=== PATIENT | female | born 1960 | race Caucasian/White ===

== ENCOUNTER → 2017-04-17 | Day surgery (SDC) | payer BC ==
[~2017-04-17] MED LIST: IOHEXOL 180 MG/ML 20 ML VIAL (for RAD DIAG) ONE; KETOROLAC TROMETHAMINE 30 MG/ML (IVP) VIAL IV PUSH ONE; LACTATED RINGER'S 1000 ML INJ 1,000 ML ONE; LIDOCAINE HCL 1% 50 ML VIAL ONE; MIDAZOLAM HCL 2 MG/2 ML VIAL ONE; PROPOFOL 200 MG/20 ML AMP IV ONE; TRIAMCINOLONE ACETONIDE 40 MG/ML VIAL ONE
--- NOTE | 2017-04-17 16:38 | TN ---
cc: JENNIFER INGRAM DATE OF SURGERY: 04/17/2017. PREOPERATIVE DIAGNOSIS: 1. Osteoarthritis of the right hip. 2. Labral tear of right hip. 3. Arthrofibrosis left right hip. POSTOPERATIVE DIAGNOSIS: 1. Osteoarthritis of the right hip. 2. Labral tear of right hip. 3. Arthrofibrosis left right hip. OPERATIVE PROCEDURE PERFORMED: 1. Arthrogram of the right hip. 2. Injection right hip with 40 mg Depo-Medrol. 3. Manipulation right hip under anesthesia. 4. Use of fluoroscopy for percutaneous needle guidance 5. Intraoperative x-rays right hip, two-views. SURGEON: Jennifer Ingram MD. ANESTHESIA: TIVA. ESTIMATED BLOOD LOSS: None. INDICATIONS FOR THE PROCEDURE: This patient is a 56-year-old female with progressive loss of range of motion and pain in the region of her right hip. [facility] and is having progressive discomfort. Physical examination shows loss of motion. She now presents for surgical treatment. DESCRIPTION OF THE PROCEDURE IN DETAIL: The patient was brought to the operating room and given limited sedation. The right hip was evaluated under anesthesia. Range of motion of the right hip was: flexion 80, extension 0, internal rotation 20, external rotation 25, abduction 20, adduction 10. After manipulation, range of motion was: flexion 110, extension zero, internal rotation 25, external rotation 35, abduction 40, adduction 20. The right hip was scrubbed with alcohol followed by Hibiclens followed by Chloraprep and draped sterilely. A 22-gauge spinal needle was advanced under fluoroscopy to the anterior aspect of the right hip joint. This was placed intra-articular. An arthrogram was performed. This showed evidence of irregularities along the anterior edge of the acetabulum. There was a slight fluid collection that was extraarticular and anterior. There was mild pitting and erosive changes. The hip was then injected with 40 milligrams of Depo-Medrol and 3 cc of 1% lidocaine plain. The hip was run through a second range of motion. Intraoperative x-rays were obtained. There was no evidence of a fracture. The arthrogram changes were as previously noted. The patient was awakened and taken to the recovery room in satisfactory condition. Jennifer MD [facility] /4:20 PM /4:32 PM
== END | disposition home or self-care (01) ==
LOC: ESDC 13:51
PROVIDERS: ATTEND Orthopaedic Surgery Orthopaedic Surgery of the Spine
DX: M16.11 Unilateral primary osteoarthritis, right hip (principal); M24.651 Ankylosis, right hip; S73.101A Unspecified sprain of right hip, initial encounter
CPT/HCPCS: 01200; 27275; 73502; 76000; J1885; J2250; J3010; J3301; J7120; Q9965

== ENCOUNTER → 2017-09-11 | Day surgery (SDC) | payer BC ==
[~2017-09-11] MED LIST changes: -IOHEXOL 180 MG/ML 20 ML VIAL (for RAD DIAG) ONE; +IOHEXOL 180 MG/ML 20 ML VIAL (for RAD DIAG) OTHER ONE; -LACTATED RINGER'S 1000 ML INJ 1,000 ML ONE; +LIDOCAINE HCL 1% 20 ML VIAL INFIL ONE; -LIDOCAINE HCL 1% 50 ML VIAL ONE; +PROPOFOL 100 MG/10 ML INJ IV ONE; -PROPOFOL 200 MG/20 ML AMP IV ONE
--- NOTE | 2017-09-11 16:34 | TN ---
cc: JENNIFER INGRAM DATE OF SURGERY: 09/11/2017. PREOPERATIVE DIAGNOSIS: 1. Osteoarthritis of the right hip. 2. Arthrofibrosis right hip. POSTOPERATIVE DIAGNOSIS: 1. Osteoarthritis of the right hip. 2. Arthrofibrosis right hip. OPERATIVE PROCEDURE PERFORMED: 1. Manipulation, right hip under anesthesia. 2. Injection of Kenalog, right hip, 40 milligrams. 3. Use of fluoroscopy for percutaneous guidance. 4. Intraoperative x-ray right hip. 5. Arthrogram of the right hip. SURGEON: Jennifer Ingram MD. ANESTHESIA: TIVA. ESTIMATED BLOOD LOSS: Minimal. INDICATIONS FOR THE PROCEDURE: This is a 57-year female with progressive pain in the region of her right hip. Investigative studies show evidence of moderate arthritis of the right hip and she is losing range of motion. She had a previous manipulation and injection six months ago and did very well. She now presents for surgical treatment. DESCRIPTION OF THE PROCEDURE IN DETAIL: The patient was brought into the operating room and anesthetized with limited sedation. The right hip was evaluated and found to have range of motion with extension 0, flexion 90, internal rotation 20, external rotation 30, adduction 20, abduction 35. After manipulation, range of motion of the right hip was extension 0, flexion 120 degrees, internal rotation 30, external rotation 40, adduction 35, abduction 45. The right hip was scrubbed with alcohol followed by Hibiclens followed by Chloraprep and draped sterilely. A time out had been done previously. A 22-gauge spinal needle was advanced across the anterior aspect of the right hip joint under fluoroscopic imaging. It was placed along the region of the anterior capsule. This was placed intraarticularly. An arthrogram was performed showing evidence of mild erosive changes of the femoral head. There was synovitis that was noted. No leak of contrast was noted. We then injected with 40 milligrams of Kenalog and 3 cc of 1% lidocaine plain. The hip was run through a second range of motion. Intraoperative x-rays were obtained showing findings of the contrast study and no evidence of a fracture. The patient was awakened and taken to the recovery room in satisfactory condition. Jennifer Ingram MD [facility] [place] /4:02 PM /4:24 PM
== END | disposition home or self-care (01) ==
LOC: ESDC 14:38
PROVIDERS: ATTEND Orthopaedic Surgery Orthopaedic Surgery of the Spine
DX: M16.11 Unilateral primary osteoarthritis, right hip (principal); M24.651 Ankylosis, right hip
CPT/HCPCS: 01200; 27275; 73502; 76000; J1885; J2250; J3010; J3301; Q9965